=== PATIENT | male | born 1945 | race Caucasian/White ===

== ENCOUNTER 2018-07-20 08:47 | Day surgery (SDC) | payer OTHER ==
--- OUTSIDE RECORDS SUMMARY | 2018-07-20 08:59 | XMS REPORT ---
:1945 [facility] Address [address] [place] [address] Dr. Fuentes [address] [place] [id number] Care Team Providers Name Role Phone Unavailable Unavailable Unavailable Problems This patient has no known problems. Allergies, Adverse Reactions, Alerts This patient has no known allergies or adverse reactions. Medications This patient has no known medications.
--- NOTE | 2018-07-20 12:21 | RAD REPORT ---
EXAM DESCRIPTION: RAD - Myelography Lumbar - 07/20/2018 11:39 am CLINICAL HISTORY: Low back pain, left lower extremity radiculopathy, spinal stenosis. COMPARISON: No prior imaging available, report from an outside CT study was reviewed. TECHNIQUE: The lumbar myelogram procedure, risks and alternatives to the procedure were discussed wi th the patient in detail. After answering all questions, both oral and written consent were obtained. Time-out procedure was performed. The patient was off of aspirin and Plavix therapy for 5 days prior to the procedure. PT/PTT an INR values are normal range. The patient was placed in an oblique prone position on the fluoroscopic table. The skin of the lower back was prepped and draped in the usual sterile fashion. After anesthetizing the skin and deeper sof t tissues with 1% lidocaine, a 22 gauge needle was advanced into the thecal sac at the L4 level. Intrathecal placement was confirmed with clear colorless CSF observed. The patient was then injected with 10 milliliters of Isovue M 200 contrast material. Needle was withdrawn and a Band-Aid placed to the puncture site. Multiple myelogram images were obtained. The patient was transferred to the [facility] for CT lumbar spine cross-sectional imaging. The patient tolerated the procedure well without immediate complications. Post-procedure care and pre caution instructions were discussed with the patient before the myelogram procedure. IMPRESSION: Successful fluoroscopic guided lumbar myelogram. Myelogram findings are incorporated int o the CT lumbar spine report.
--- NOTE | 2018-07-20 14:09 | RAD REPORT ---
EXAM DESCRIPTION: CT - Spine Lumbar Wo Con - 07/20/2018 12:01 pm CLINICAL HISTORY: Back pain, spinal stenosis, left lower extremity radiculopathy COMPARISON: No prior imaging available for comparison. TECHNIQUE: Thin section 2 mm axial imaging of the lumbar spine was performed. Sagittal and coronal reconstruction images were generated and reviewed. All CT scans are performed using dose optimization technique as appropriate and may include automated exposure control or mA/KV adjustment according to patient size. FINDINGS: Lumbar bodies are normal in height. There is no compression fracture lytic change or blast ic change. There is a slight retrolisthesis of L2 on L3. The patient has a minimal left lateral sublu xation of the L3 and L4 bodies relative to L2 and L5. This creates as well a minimal left convex scol iotic curvature. No paraspinal soft tissue mass. Dense aortic calcifications are present without aneurysm. Conus terminates at mid T12 level. There is no clumping or thickening of the cauda equina. No arachno iditis findings. T12-L1 level: No herniation or disc bulge. No canal or foramen stenosis. No significant facet degener ative change. There is no ligamentous thickening. L1-L2 level: No herniation or disc bulge. No canal or foramen stenosis. No significant facet or ligam entous changes. L2-L3 level: There is near complete loss in disc height in addition to the posterior and lateral subl uxation abnormalities. Circumferential endplate spurring is seen. There is degenerative gas in the di sc space. Endplate spurring and disc bulge changes attenuate the anterior subarachnoid space with min imal right anterior thecal sac flattening. Right foraminal stenosis is present. No central spinal baldomero nosis. Left foraminal encroachment is mild. L3-L4 level: Loss in disc height is noted posteriorly. There is a mild bulging of disc material acros s the central canal and into each exit foramen. Thecal sac is 9-10 mm in the midline. Facet degenerat sawyer changes are present. No significant ligamentous thickening. No significant foraminal encroachment is seen. L4-L5 level: Circumferential bulging of disc material is present. Degenerative gas is present in the disc space. Focal protruding disc material in the midline flattens the thecal sac. Midline thecal sac diameter is 10 mm. Facet joint degenerative change and ligamentous thickening are present. Bilateral foraminal encroachment is present. There is still some perineural fat surrounding the exiting nerve roots. L5-S1 level: Prominent bulging of disc material is present in the central canal. This is slightly wor se on the left. Protruding disc does contact but does not significantly displace the left S1 nerve ro ot. No central spinal stenosis or right foraminal encroachment seen. Facet degenerative changes are p resent. Left foraminal encroachment is present. A small amount of perineural fat is still present. Th ere is degenerative gas in this disc space. SI joint degenerative changes are present relatively mild. IMPRESSION: 1. 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 Canal is borderli ne to mildly stenotic at L3-L4 with borderline stenosis at L4-L5 and L5-S1. 2. L5-S1 bulging disc material contacts but does not displace the left S1 nerve root. There is left f oraminal disc bulge with foraminal encroachment present on the left. 3. Focal protruding disc material L4-L5 flattens the thecal sac. There is bilateral foraminal encroac hment with some perineural fat still identifiable. 4. Right lateral central canal protruding disc material at L2-L3. There is flattening of the thecal s ac. Significance is doubtful as the patient indicates radiculopathy is the left lower extremity. 5. No compression fracture or pathologic bone process.
== END 2018-07-20 14:56 | disposition home or self-care (01) ==
LOC: DS 08:47
PROVIDERS: ATTEND Specialist
DX: M54.5 Low back pain (principal); M54.16 Radiculopathy, lumbar region
CPT/HCPCS: 62304; 72131; Q9966